=== PATIENT | male | born 1935 | race Caucasian/White ===

== ENCOUNTER 2021-12-20 20:08 | Emergency (ER) | payer MEDICARE | END 2021-12-20 23:10 | disposition home or self-care (01) | LOC: JD.ED 20:08 | DX: M25.561 Pain in right knee (principal); E78.00 Pure hypercholesterolemia, unspecified; I10 Essential (primary) hypertension; M10.9 Gout, unspecified; E11.9 Type 2 diabetes mellitus without complications; Z79.82 Long term (current) use of aspirin; Z79.899 Other long term (current) drug therapy; W19.XXXA Unspecified fall, initial encounter; Y92.099 Unspecified place in other non-institutional residence as the place of occurrence of the external cause | CPT/HCPCS: 73502-26-RT; 73502-RT; 73560-26-RT; 73560-RT; 99284-25 ==